=== PATIENT | male | born 1945 | race Caucasian/White ===

== ENCOUNTER 2020-07-22 05:42 | Day surgery (SDC) | payer MEDICARE, OTHER ==
[~2020-07-22] VITALS: Ht 167.6 cm; Wt 95.0 kg
[~2020-07-22 05:42] MED LIST: ALFU10TA PO; AMLO5TAB4 PO; AREDS2 PO; BENA40TA3 PO; CELE200C PO; CHOL10003 PO; GEMF-31 PO; INDA2.5T PO; INSU100I17 SC; METF1000 PO; MULT-449 PO; OMEG1CAP39 PO
[2020-07-22] MEDS ORDERED: CHLORHEXIDINE 15 ML UDC ONE (06:11)
[2020-07-22] MEDS ORDERED: BUPIVACAINE/PF 0.5% ONE (06:12)
[2020-07-22] MEDS ORDERED: EPINEPHRINE 1 MG/ML, 1ML ONE (06:12)
[2020-07-22] MEDS ORDERED: LACTATED RINGERS 1,000 ML IV SCH (06:30)
[2020-07-22] MEDS ORDERED: CHLORHEXIDINE 15 ML UDC MM ONE (06:30)
[2020-07-22] MEDS ORDERED: MIDAZOLAM 1 MG/ML, 2ML ONE (06:53)
[2020-07-22] MEDS ORDERED: LIDOCAINE-MPF 2% ,5ML ONE (06:55)
[2020-07-22] MEDS ORDERED: FENTANYL PF 100 MCG/2ML ONE ×3 (06:57→10:18)
[2020-07-22] MEDS ORDERED: SUCCINYLCHOLINE 20 MG/ML, 10ML ONE (06:59)
[2020-07-22] MEDS ORDERED: ONDANSETRON 2MG/ML, 2ML ONE (06:59)
[2020-07-22] MEDS ORDERED: PROPOFOL 10 MG/ML, 20ML ONE (06:59)
[2020-07-22] MEDS ORDERED: DEXAMETHASONE 4 MG/ML, 1ML ONE (06:59)
[2020-07-22] MEDS ORDERED: EPHEDRINE 50 MG/ML, 1ML ONE (07:12)
[2020-07-22] MEDS ORDERED: CEFAZOLIN 1,000 MG ONE (07:12)
[2020-07-22] MEDS ORDERED: PHENYLEPHRINE 10 MG/ML ONE (07:12)
[2020-07-22] MEDS ORDERED: MEPERIDINE/PF 25MG/0.5ML IVPush PRN (08:00)
[2020-07-22] MEDS ORDERED: hydrALAzine 20 MG/ML, 1ML IV PRN (08:00)
[2020-07-22] MEDS ORDERED: HYDROmorphone 1 MG/ML, 1ML INJ IVPush PRN (08:00)
[2020-07-22] MEDS ORDERED: ACETAMINOPHEN 325 MG TABLET PO PRN (08:00)
[2020-07-22] MEDS ORDERED: ONDANSETRON 2MG/ML, 2ML IVPush PRN (08:00)
[2020-07-22] MEDS ORDERED: LABETALOL 5MG/ML, 20ML IV PRN (08:00)
[2020-07-22] MEDS ORDERED: OXYcodone 5 MG/5 ML ORAL.SOL UDC PO PRN (08:00)
[2020-07-22] MEDS ORDERED: OXYcodone 5 MG/5 ML ORAL.SOL UDC ONE (10:18)
[2020-07-22] MEDS ORDERED: ACETAMINOPHEN 650 MG/20.3 ML UDC ONE ×2 (10:18→10:19)
[2020-07-22] MEDS: FENTANYL PF 100 MCG/2ML IV PRN ×2 (10:29→10:34)
== END 2020-07-22 12:00 | disposition home or self-care (01) ==
LOC: OUT 05:42
PROVIDERS: ATTEND Orthopaedic Surgery Hand Surgery
DX: M96.0 Pseudarthrosis after fusion or arthrodesis (principal); I10 Essential (primary) hypertension; E11.9 Type 2 diabetes mellitus without complications; Z79.4 Long term (current) use of insulin; Z79.891 Long term (current) use of opiate analgesic; Z79.899 Other long term (current) drug therapy; Z87.891 Personal history of nicotine dependence; Z98.890 Other specified postprocedural states; Z83.3 Family history of diabetes mellitus; Z82.49 Family history of ischemic heart disease and other diseases of the circulatory system; Y83.8 Other surgical procedures as the cause of abnormal reaction of the patient, or of later complication, without mention of misadventure at the time of the procedure
CPT/HCPCS: 25825; 73100; 82962; C1713; C1762; C1769; J0330; J0690; J1100; J2250; J2370; J2405; J2704; J3010; J7120; 76000; J0171